=== PATIENT | male | born 1990 | race Caucasian/White ===

== ENCOUNTER 2017-10-01 23:37 | Emergency (ER) | payer MEDICAID ==
[~2017-10-01] VITALS: Ht 175.3 cm; Wt 88.1 kg
[~2017-10-01 23:37] MED LIST: FLO0.4C PO; HYDR-565 PO; IBUP-1986 PO
[2017-10-02 00:06] LABS: COLOR,URINE Dark Yellow (Yellow); GLUCOSE, URINE Negative (Neg); KETONES,URINE Negative (Neg); LEUKOCYTE ESTERASE ,URINE Negative (Neg); NITRITES, URINE Negative (Neg); OCCULT BLOOD,URINE Moderate (Neg); PH,URINE 5.5 (4.8-8.0); PROTEIN,URINE Negative (Neg)
[2017-10-02 00:24] LABS: CLARITY,URINE SLIGHTLY CLOUDY (Clear); UA COLLECTION TYPE CLN CATCH MIDSTREAM
[2017-10-02 00:25] LABS: BACTERIA,URINE FEW /HPF (Neg); CAL OXALATE CRYSTALS 2+ /HPF (NEGATIVE); RBC,URINE 20-50 /HPF (0-2); SQUAMOUS EPITHELIAL CELL,UR FEW /LPF (FEW); WBC,URINE 0-4 /HPF (0-4)
[2017-10-02] MEDS ORDERED: morphine sulfate 8 MG/ML SYRINGE IV ONE (00:25)
[2017-10-02] MEDS ORDERED: ondansetron/PF 4mg/2ml inj IV ONE (00:25)
[2017-10-02] MEDS ORDERED: normal saline 1000ML IV soln IVB ONE (00:25)
[2017-10-02] MEDS ORDERED: LORazepam 2 mg/ml vial IV ONE (00:25)
[2017-10-02] MEDS ORDERED: ketorolac tromethamine 15mg/ml inj. IV ONE (00:25)
[2017-10-02] MEDS ORDERED: IBUP-1985 PO (01:27)
[2017-10-02] MEDS ORDERED: HYDR-565 PO (01:27)
[2017-10-02] MEDS ORDERED: FLO0.4C PO (01:27)
[2017-10-02 02:04] VITALS: BP 92/52
== END 2017-10-02 02:08 | disposition home or self-care (01) ==
LOC: ER 23:38
DX: N23 Unspecified renal colic (principal); Z87.442 Personal history of urinary calculi; F12.10 Cannabis abuse, uncomplicated
CPT/HCPCS: 81001; 96361; 96374; 96375; 99284; J1885; J2060; J2270; J2405; J7030; 81003